=== PATIENT | female | born 1990 ===

== ENCOUNTER 2017-11-20 00:04 | Inpatient (IN) | payer OTHER ==
[2017-11-20] MEDS ORDERED: ELECTROLYTE-148 SOLN 1,000 ML IV SCH (01:45)
[2017-11-20 01:58] LABS: BASO % 0.3 % (0-2.0); EOS % 0.8 % (0-4.5); HEMATOCRIT 33.3 % (32.4-45.2); HEMOGLOBIN 11.1 GM/dL (10.7-15.3); LYMPH % 21.7 % (8-40); MCHC 33.4 g/dl (32.0-36.0); MEAN CELL VOLUME 80.8 fl (80-96); MEAN PLT VOLUME 10.6 fl (7.5-11.1); MONO % 9.4 % (3.8-10.2); NEUT % 67.8 % (42.8-82.8); PLATELET COUNT 160 K/MM3 (134-434); RBC 4.12 M/mm3 (3.60-5.2); RDW 14.1 % (11.6-15.6); WHITE BLOOD COUNT 10.3 K/mm3 (4.0-10.0)
--- NOTE | 2017-11-20 02:01 | HP ---
Past Medical History - Admission History of Present Illness: 27 yo @ 40 1/7 wks by first trimester ultrasound, EDC 11/19/2017 uncomplicated Patient presents with chief complaint of contractions which began yesterday evening at 2300. They increased in intensity and frequency and now are Q2-3 minutes. She reports movement, denies leakage of fluid or vaginal bleeding. History Source: Patient Limitations to Obtaining History: No Limitations - Past Medical History Cardiovascular: No: HTN Pulmonary: No: Asthma Gastrointestinal: No: GERD ...: 3 ...Para: 2 ...Term: 2 ... Weeks Gestation by Dates: 40.1 Heme/Onc: Yes: Anemia - Past Surgical History Past Surgical History: Yes: None Hx Myomectomy: No Hx Transabdominal Cerclage: No - Alcohol/Substance Use Hx Alcohol Use: No History of Substance Use: reports: None - Social History History of Recent Travel: No Home Medications - Allergies Allergies/Adverse Reactions: Allergies Allergy/AdvReac Type Severity Reaction Status Date / Time No Known Allergies Allergy Verified 11/19/17 20:44 - Home Medications Home Medications: Ambulatory Orders Prenat 115/Iron Fum/Folic/Dss [ 19 Tablet] 1 tab PO DAILY 11/19/17 Family Disease History - Family Disease History Family History: Denies Review of Systems - Review of Systems Constitutional: reports: No Symptoms Eyes: reports: No Symptoms Neck: reports: No Symptoms Cardiovascular: reports: No Symptoms Respiratory: reports: No Symptoms Gastrointestinal: reports: No Symptoms Genitourinary: reports: No Symptoms Integumentary: reports: No Symptoms Neurological: reports: No Symptoms Endocrine: reports: No Symptoms Hematology/Lymphatic: reports: No Symptoms Psychiatric: reports: No Symptoms Physical Exam - Maternity Constitutional: Yes: Well Nourished, No Distress, Calm Cardiovascular: Yes: Regular Rate and Rhythm Lungs: Clear to auscultation - Abdominal Exam/OB Number of Fetuses: Single Presentation: Vertex Contractions: Yes Regularity: Regular Intensity: Strong Monitor Mode: External Heart Rate (range): 130 Category: I Accelerations: Non-Uniform Decelerations: None - Vaginal Exam/OB Dilatation (cm): 5 - Physical Exam Edema: No Psychiatric: Yes: Alert, Oriented - Labs Lab Results: PNL: O positive, antibody negative; RPR NR; HBS Ag negative; Rubella Immune; HIV negative; AFP WNL; GBS negative Hemorrhage Risk Assessment - Risk Factors Medium Risk Factors: Yes: None High Risk Factors: Yes: None Risk Score: 1 Risk Level: Medium Risk Assessment/Plan 27 yo @ 40 10/24 active labor 1. Admit to L&D 2. Consents reviewed and signed 3. Routine labs collected and sent 4. GBS negative 5. Desires contraception 6. Will proceed with expectant management, anticipate vaginal delivery
[2017-11-20] MEDS ORDERED: FENTANYL/BUPIVACAINE/NS/PF - PCEA - 50 ML DISP.SYRIN EP ONE (02:12)
[2017-11-20 02:20] LABS: INR 0.92 (0.82-1.09); PROTHROMBIN TIME (PATIENT) 10.4 SEC (9.98-11.88)
[2017-11-20 02:22] LABS: ACTIVATED PTT 21.3 SECONDS (26.9-34.4)
[2017-11-20 02:24] LABS: ANION GAP 11 (8-16); BLOOD UREA NITROGEN 8 mg/dL (7-18); CALCIUM 8.7 mg/dL (8.5-10.1); CHLORIDE 106 mmol/L (98-107); CO2 22 mmol/L (21-32); CREATININE 0.5 mg/dL (0.55-1.02); GLUCOSE,RANDOM 78 mg/dL (74-106); POTASSIUM 3.9 mmol/L (3.5-5.1); SODIUM 139 mmol/L (136-145)
[2017-11-20] MEDS ORDERED: OXYTOCIN 20 UNITS in 0.9% NS 20 UNIT/1,000 ML INFUS.BAG IV ONE ×2 (02:43→05:48)
[2017-11-20 03:05] VITALS: BMI 24.3
[2017-11-20] MEDS ORDERED: WITCH HAZEL 50% (TUCKS) 40 PAD/JAR PAD TP PRN (03:28)
[2017-11-20] MEDS ORDERED: BENZOCAINE 28 GM HEMORRHOIDAL OINTMENT TP PRN (03:28)
[2017-11-20] MEDS ORDERED: oxyCODONE HCL 5 MG TABLET PO PRN (03:28)
[2017-11-20] MEDS ORDERED: METHYLERGONOVINE MALEATE 0.2 MG/1 ML AMP IM PRN (03:28)
[2017-11-20] MEDS ORDERED: BISACODYL 10 MG SUPP.RECT RC PRN (03:28)
[2017-11-20] MEDS ORDERED: BENZOCAINE 20% 57 GM BOTTLE TP PRN (03:28)
--- NOTE | 2017-11-20 03:28 | PN ---
Delivery - Delivery Vaginal Delivery: No Problems Type of Anesthesia: Spinal Episiotomy/Laceration: None EBL (cc): 200 Delivery, Single - Stages of Labor Date 1st Stage Initiatied: 11/19/17 Time 1st Stage Initiated: 23:00 Date 2nd Stage Initiated: 11/20/17 Time 2nd Stage Initiated: 03:10 Date of Delivery: 11/20/17 Time of Delivery: 03:15 Date Placenta Delivered: 11/20/17 Time Placenta Delivered: 03:19 Placenta: Yes: Spontaneous - Condition of Gender: Male Position: Left, OA - 1 Minute Total Score: 9 5 Minutes Total Score: 9 - Feeding Plan Initial Plan: Exclusive throughout hospitalization Remarks - Remarks Remarks: Patient progressed to fully dilated and at 0315 via delivered a viable male infant in ISH position, APGARs 9,9. Weight and length unknown at this time. Head delivered spontaneously, nuchal cord noted and delivered through shoulders and body without difficulty. with spontaneous cry and placed on mother's abdomen. Nose and mouth was bulb suctioned. Cord was clamped and cut. Perineum and vagina examined, no lacerations were noted Placenta was delivered spontaneously and intact. 20 units of pitocin in 1 L IVF was given. All counts correct x 2. Mother and infant stable in LDR. EBL 200cc.
[2017-11-20] MEDS ORDERED: OXYTOCIN 20 UNITS in 0.9% NS 20 UNIT/1,000 ML INFUS.BAG IV SCH (03:30)
[2017-11-20] MEDS: ACETAMINOPHEN 325 MG TABLET (FP) PO PRN ×3 (05:30→18:29)
[2017-11-20] MEDS: IBUPROFEN 600 MG TABLET (FP) PO PRN ×3 (05:30→18:29)
[2017-11-20] MEDS ORDERED: ACETAMINOPHEN 325 MG TABLET (FP) ONE (05:32)
[2017-11-20] MEDS ORDERED: IBUPROFEN 600 MG TABLET (FP) PO ONE (05:33)
[2017-11-20] MEDS ORDERED: TUBERCULIN PPD 5 TU/0.1ML SYRINGE (IN PATIENT USE ONLY) ID ONE (09:00)
[2017-11-20] MEDS: PRENATAL VITAMINS W/ FOLIC ACID TABLET (FP) PO SCH (09:19)
--- NOTE | 2017-11-21 07:32 | PN ---
Post Progress Note - Subjective Subjective: Patient without acute complaints. Reports tolerating oral intake without nausea or vomiting. Ambulating without dizziness. Denies fevers or chills. Pain well controlled with oral pain medication. without difficulty. Passing flatus. Post Day: 1 Type of Delivery: Vital Signs: Vital Signs Temperature 98.1 F 11/20/17 21:56 Pulse Rate 76 11/20/17 21:56 Respiratory Rate 20 11/20/17 21:56 Blood Pressure 105/71 11/20/17 21:56 O2 Sat by Pulse Oximetry (%) 99 11/20/17 05:15 Breast Exam: Yes: Soft Uterus: Yes: Fundus Firm, Fundus below umbilicus Abdomen/GI: Yes: Abdomen soft, Passing flatus, Tolerating PO. No: Abdominal Distention, Tender Lochia: Yes: Serosa Lochia, amount: Small Extremities: Yes: Calves non-tender. No: Edema Activity: Ambulating - Labs Labs: CBC WBC 10.3 K/mm3 (4.0-10.0) H 11/20/17 01:37 RBC 4.12 M/mm3 (3.60-5.2) 11/20/17 01:37 Hgb 11.1 GM/dL (10.7-15.3) 11/20/17 01:37 Hct 33.3 % (32.4-45.2) 11/20/17 01:37 MCV 80.8 fl (80-96) 11/20/17 01:37 MCH 27.0 pg (25.7-33.7) 11/20/17 01:37 MCHC 33.4 g/dl (32.0-36.0) 11/20/17 01:37 RDW 14.1 % (11.6-15.6) 11/20/17 01:37 Plt Count 160 K/MM3 (134-434) 11/20/17 01:37 MPV 10.6 fl (7.5-11.1) 11/20/17 01:37 Neutrophils % 67.8 % (42.8-82.8) 11/20/17 01:37 Lymphocytes % 21.7 % (8-40) 11/20/17 01:37 Monocytes % 9.4 % (3.8-10.2) 11/20/17 01:37 Eosinophils % 0.8 % (0-4.5) 11/20/17 01:37 Basophils % 0.3 % (0-2.0) 11/20/17 01:37 Assessment/Plan 27 yo PPD # 1 s/p , afebrile, vital signs stable, doing well 1. Continue routine care. 2. Follow up AM CBC 3. Rh positive status, no rhogam indicated. 4. Encourage ambulation and incentive spirometer use 5. Continue oral pain medication 6. Anticipate discharge home day #2
[2017-11-21 08:09] LABS: BASO % 0.3 % (0-2.0); EOS % 1.2 % (0-4.5); HEMATOCRIT 32.6 % (32.4-45.2); HEMOGLOBIN 10.6 GM/dL (10.7-15.3); MCH 26.5 pg (25.7-33.7); MCHC 32.5 g/dl (32.0-36.0); MEAN CELL VOLUME 81.4 fl (80-96); MEAN PLT VOLUME 10.3 fl (7.5-11.1); MONO % 6.2 % (3.8-10.2); NEUT % 71.3 % (42.8-82.8); PLATELET COUNT 145 K/MM3 (134-434); RBC 4.01 M/mm3 (3.60-5.2); RDW 14.3 % (11.6-15.6); WHITE BLOOD COUNT 13.1 K/mm3 (4.0-10.0)
[2017-11-21] MEDS: PRENATAL VITAMINS W/ FOLIC ACID TABLET (FP) PO SCH (09:34)
[2017-11-21] MEDS: IBUPROFEN 600 MG TABLET (FP) PO PRN ×2 (12:29→21:17)
[2017-11-21] MEDS: ACETAMINOPHEN 325 MG TABLET (FP) PO PRN (21:16)
[2017-11-21] MEDS ORDERED: SENNOSIDES/DOCUSATE COMBO (SENNA PLUS) TABLET (UD) PO PRN (22:00)
[2017-11-22 08:21] VITALS: BP 107/70; PULSE 85; TEMP 97.9
[2017-11-22] MEDS: PRENATAL VITAMINS W/ FOLIC ACID TABLET (FP) PO SCH (09:21)
[2017-11-22] MEDS: IBUPROFEN 600 MG TABLET (FP) PO PRN (09:21)
[2017-11-22] MEDS: ACETAMINOPHEN 325 MG TABLET (FP) PO PRN (09:22)
--- NOTE | 2017-11-22 09:49 | PN ---
Post Progress Note - Subjective Subjective: Patient without acute complaints. Reports tolerating oral intake without nausea or vomiting. Ambulating without dizziness. Denies fevers or chills. Pain well controlled with oral pain medication. without difficulty. Passing flatus. Post Day: 2 Type of Delivery: Vital Signs: Vital Signs Temperature 97.9 F 11/22/17 08:17 Pulse Rate 85 11/22/17 08:17 Respiratory Rate 20 11/22/17 08:17 Blood Pressure 107/70 11/22/17 08:17 O2 Sat by Pulse Oximetry (%) 99 11/20/17 05:15 Breast Exam: Yes: Engorged Uterus: Yes: Fundus Firm Abdomen/GI: Yes: Abdomen soft, Passing flatus, Tolerating PO. No: Abdominal Distention, Tender Lochia: Yes: Serosa Lochia, amount: Small Extremities: Yes: Calves non-tender. No: Edema Perineum: Yes: Intact Activity: Ambulating - Labs Labs: CBC WBC 13.1 K/mm3 (4.0-10.0) H 11/21/17 06:25 RBC 4.01 M/mm3 (3.60-5.2) 11/21/17 06:25 Hgb 10.6 GM/dL (10.7-15.3) L 11/21/17 06:25 Hct 32.6 % (32.4-45.2) 11/21/17 06:25 MCV 81.4 fl (80-96) 11/21/17 06:25 MCH 26.5 pg (25.7-33.7) 11/21/17 06:25 MCHC 32.5 g/dl (32.0-36.0) 11/21/17 06:25 RDW 14.3 % (11.6-15.6) 11/21/17 06:25 Plt Count 145 K/MM3 (134-434) 11/21/17 06:25 MPV 10.3 fl (7.5-11.1) 11/21/17 06:25 Neutrophils % 71.3 % (42.8-82.8) 11/21/17 06:25 Lymphocytes % 21.0 % (8-40) 11/21/17 06:25 Monocytes % 6.2 % (3.8-10.2) 11/21/17 06:25 Eosinophils % 1.2 % (0-4.5) 11/21/17 06:25 Basophils % 0.3 % (0-2.0) 11/21/17 06:25 Assessment/Plan 27 yo PPD # 2 s/p , afebrile, vital signs stable, doing well 1. Patient stable for discharge home today. 2. Patient encouraged to contact MD for: - Severe pain not controlled by oral pain medication - Fevers or chills - Nausea or vomiting, intolerance of oral intake 3. Patient to follow up in office in 4-6 weeks for visit
--- NOTE | 2017-11-22 09:51 | DS ---
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[employer] Vital Signs: Vital Signs Temperature 97.9 F 11/22/17 08:17 Pulse Rate 85 11/22/17 08:17 Respiratory Rate 20 11/22/17 08:17 Blood Pressure 107/70 11/22/17 08:17 O2 Sat by Pulse Oximetry (%) 99 11/20/17 05:15 Labs: CBC, BMP 11/21/17 06:25 11/20/17 01:37 Delivery - Delivery Vaginal Delivery: No Problems Type of Anesthesia: Spinal Episiotomy/Laceration: None EBL (cc): 200 Delivery, Single - Stages of Labor Date 1st Stage Initiatied: 11/19/17 Time 1st Stage Initiated: 23:00 Date 2nd Stage Initiated: 11/20/17 Time 2nd Stage Initiated: 03:10 Date of Delivery: 11/20/17 Time of Delivery: 03:15 Time Placenta Delivered: 03:19 Placenta: Yes: Spontaneous - 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 She fulfilled all criteria for discharge PPD #2 Condition: Good - Instructions Diet, Activity, Other Instructions: Physical activity Resume your normal everyday activity as tolerated no heavy lifting or exercise until seen by your surgeon. You may walk unlimited guillermo of and climb stairs. You may resume driving the car when you feel safe and comfortable behind the wheel. No sexual activity as instructed. Diet There are no dietary restrictions. Eat healthy, high-fiber foods. Drink 6 to 8 glasses of liquid each day. This will assist in keeping your bowels are regular. Pain management You may take Tylenol or acetaminophen or Ibuprofen (for example, Motrin, Advil etc.) from my pain prescription medication is ordered should be taken as prescribed for moderate to severe pain. Call MD for any of the following: Severe pain not relieved by medication Fever of 101 or higher Excessive bleeding or drainage on dressing Inability to urinate Referrals: Gayla Cooper MD [Staff Physician] - Disposition: HOME - Home Medications Comprehensive Discharge Medication List: Ambulatory Orders Prenat 115/Iron Fum/Folic/Dss [ 19 Tablet] 1 tab PO DAILY 11/19/17
== END 2017-11-22 11:00 | disposition home or self-care (01) | DRG 560 ==
LOC: JDEL 00:04 → JLDR 01:00 → J3W 06:00
PROVIDERS: ADMIT Obstetrics & Gynecology; ATTEND Obstetrics & Gynecology
PROC: 10E0XZZ Delivery of Products of Conception, External Approach (ICD-10-PCS; principal; 2017-11-20)
DX: O80 Encounter for full-term uncomplicated delivery (principal); Z3A.40 40 weeks gestation of pregnancy; Z37.0 Single live birth
CPT/HCPCS: 36415; 59409; 80048; 85025; 85610; 85730; 86593; 86850; 86900; 86901; 87389